=== PATIENT | female | born 1965 | race Caucasian/White ===

== ENCOUNTER → 2017-11-13 08:15 | Outpatient (REF) | payer OTHER, SELFPAY ==
[2017-11-13 13:36] LABS: Cholesterol 255 mg/dL (50-200); HDL Cholesterol 74 mg/dL (40-60); LDL CHOLESTEROL 164 mg/dL (<100); Triglyceride 68 mg/dL (30-150)
== END ==
LOC: NCHCN 08:15
PROVIDERS: PCP Nurse Practitioner Family; Visit Provider Nurse Practitioner Family
DX: Z00.00 Encounter for general adult medical examination without abnormal findings (principal); Z13.220 Encounter for screening for lipoid disorders
CPT/HCPCS: 80061; 83721

== ENCOUNTER 2018-04-08 11:39 | Day surgery (SDC) | payer OTHER, SELFPAY ==
--- NOTE | 2018-04-08 06:56 | COLE_ITS ---
Date of service: 04/08/18 Time of Service: 14:27 Colonoscopy Report Date of procedure: 04/08/18 Pre-op diagnosis general: Colon Cancer Screening Post-op diagnosis procedure note: other (cecal polyp/ suboptimal prep) Procedure: Colonoscopy with polypectomy by cold forceps Surgeon: Katie Goldsmith Anesthesia proc note operative: MAC (Edmond Gallo, NUMERICAL CONTROL MACHINE MACHINIST/ ASA 2) Estimated blood loss (mL): 2 Pathology: other (cecal polyp) Complications: None Disposition: same day Indications: Ms. López is a pleasant 53-year-old female who was seen in the office for a colon cancer screening. Risks, benefits, complications were reviewed with her and she wished to proceed. No guarantees were given or implied. Prep: Miralax/Dulcolax Procedure Start Time: 14:27 Procedure End Time: 15:00 Retraction Time: 18 minutes Findings: Suboptimal prep on the right side small cecal polyp Procedure Description: After informed consent was obtained the patient was taken to the procedure room and placed in a left decubitous position. Monitors were applied and a time out was done. The patients name, date of , procedure, allergies to medications and metal in their body was reviewed. The patient was then sedated. Once sedated and comfortable a rectal exam was done. External exam was normal. Internal exam revealed a normal sphincter tone and no palpable masses. The scope was then introduced and retro-flexed. No internal hemorrhoids were identified. The scope was then advanced to the cecum with some difficulty. The colon was tortuous. The patient had to be placed on her back in order for the scope to finally move into the cecum. The TI and appendiceal orifice were identified. The prep was sub-optimal. There was a lot of dark liquid stool in the right colon from about mid-transverse to cecum. More then 1 L of fluid was used to try and clean the stool. The scope was then slowly retracted over 18 minutes back into the rectum. Polyp was removed in the cecum with cold forceps. The scope was removed and the patient was woken up and taken back to Same day surgery in stable condition. The patient tolerated the procedure well and there were no immediate complications. Follow up: The patient should follow up in 1-2 years due to the sub-optimal prep. Small polyps could have been easily missed. unless they develop changes in bowel habits or other new gastrointestinal complaints.
--- NOTE | 2018-04-08 06:56 | W.PM.DSUDISC ---
Discharge Plan Disposition Patient Disposition: HOME Condition: Good Discharge Details Reason For Visit: SCREENING Attending Provider: Katie Goldsmith Primary Care Provider: Bianca Mora Home Meds and New Rx's Prescriptions: Continued multivitamin 1 EACH capsule 1 ea PO DAILY RF: 0 loratadine 10 MG tablet 10 mg PO PRN RF: 0 Discontinued bisacodyl [Dulcolax (bisacodyl)] 5 mg tablet,delayed release (DR/EC) 5 mg PO ONCE Qty: 4 RF: 0 polyethylene glycol 3350 17 gram/dose powder 255 g PO ONCE Qty: 255 RF: 0 Discharge Instructions Instructions: Colonoscopy (DC), Colorectal Polyps (DC) Additional Instructions: Findings: one polyp sub-optimal prep Follow up: 1-2 years Please call if you develop: fevers >101.5 Nausea or Vomiting Abdominal pain that is not transient DAY SURGERY UNIT POST COLONOSCOPY INSTRUCTIONS 1. Because there will be medication in your system for the next 24 hours, you may feel a little sleepy. Your coordination will be affected. Therefore: a. Do not drive or operate dangerous equipment for 24 hours. b. Do not drink alcohol beverages for 24 hours (not even beer). c. Plan to go home and rest for the day. 2. Generally there are no restrictions on your activity after a day or so has gone by, but you may feel a bit fatigued for a few days. 3 After you arrive home you may have a light meal and return to a normal diet as you can tolerate it without feeling sick to your stomach. 4. After surgery, you may feel pain or discomfort. This should be only transient, but if it persists please contact your doctor. 5. If there are any questions regarding the findings of your procedure, please feel free to contact your doctor. 6. If you are unable to contact your doctor with a problem, contact the hospital at [phone]. 7. Continue all your regular medications unless directed otherwise. I understand the above instructions and have no questions. Signature of Patient or Responsible Adult Escort Date/Time Name of Responsible Adult Escort Signature of Nurse Date/Time Activity:: Activity as Tolerated Diet:: As Tolerated Discharge Orders Discharge Orders: Discharge Order (Routine); Ordered 04/08/18 Ordered By: Katie Goldsmith DS: Diagnosis Discharge Diagnosis (1) Colorectal polyp detected on colonoscopy: Status: Acute (2) S/P colonoscopy: Status: Acute
[2018-04-08 11:49] VITALS: BP 156/83; PULSE 69; RESP 16; TEMP 35; O2SAT 99
[2018-04-08] MEDS: Lactated Ringers 1,000 ML 80 ML IV ×2 (12:21→15:31)
--- NOTE | 2018-04-08 14:43 | BOWEL_PTH ---
PATIENT: VAUGHN ROBERT LOC: [facility] U#:[id number] AGE/SX: 53/F ROOM: RE04/08/[address]: Katie Goldsmith MD : [id number] BED: DIS: 04/08/2018 SPEC #: [id number] RECD: 04/08/18 18:00 STATUS: MARCIA MCDONNELL #: [id number] HOLLEY: 04/08/18 14:[address]: Katie Goldsmith DEPT: Surgical Specimen RECD BY: Anitha Brannon ENTERED: 04/08/18 18:00 SP TYPE: Bowel OTHR DR: Bianca Mora Tissues: 1 - BIOPSY BOWEL Procedures: GROSS AND MICRO LEVEL 4 Comments: [id number]
[2018-04-08] MEDS: Hyoscyamine 0.125 MG SL/ORAL/CHEW SL (15:32)
[2018-04-08 15:42] VITALS: BP 172/85; PULSE 58; RESP 16; TEMP 37.1; O2SAT 100
[2018-04-08 16:10] VITALS: BP 133/84; PULSE 68; RESP 16; TEMP 37.4; O2SAT 99
== END 2018-04-08 16:32 | disposition home or self-care (01) ==
PROVIDERS: PCP Nurse Practitioner Family; Visit Provider Surgery
PROC: 0DJD8ZZ Inspection of Lower Intestinal Tract, Via Natural or Artificial Opening Endoscopic (ICD-10-PCS; CPT 45378; principal; 2018-04-08 13:30)
DX: Z12.11 Encounter for screening for malignant neoplasm of colon (principal); D12.0 Benign neoplasm of cecum
CPT/HCPCS: 45380; 88305; J3490

== ENCOUNTER 2018-10-11 22:59 | Emergency (ER) | payer OTHER, SELFPAY ==
[2018-10-11] VITALS (11 sets, daily range): BP systolic 140–180; BP diastolic 73–82; PULSE 63–74; RESP 14–20; TEMP 37.1; O2SAT 95–98
--- NOTE | 2018-10-11 01:23 | DI.CT_ITS ---
SYMPTOM/DIAGNOSIS: ACUTE ONSET NECK AND BACK, CHEST PAIN CTA OF NECK: CT angiography was performed with multi slice acquisition and multi planar and 3D reconstruction. Routine examination was performed. The common carotid arteries are unremarkable without evidence of dissection, occlusion or significant stenosis. The internal carotid arteries are unremarkable without evidence of dissection, occlusion or significant stenosis. The external carotid arteries are unremarkable without evidence of occlusion or significant stenosis. The vertebral arteries are unremarkable without evidence of occlusion, dissection or significant stenosis. There is mild mucosal thickening in the right maxillary sinus. The remaining visualized paranasal sinuses are clear. No fluid levels are seen. The mastoid air cells are well pneumatized. The bones are intact. The lung apices are clear. IMPRESSION: No carotid or vertebral artery stenosis, dissection or aneurysm. CTA CHEST: CT angiography was performed with multi slice acquisition and multi planar and 3D reconstruction. CT angiography of the chest was performed according to protocol. There is no evidence of a pulmonary embolus, thoracic aortic dissection or aneurysm. Heart size is within normal limits. No significant pericardial effusion is seen. No evidence of right ventricular dysfunction is present. No significant thoracic adenopathy is seen. No pleural effusion or pneumothorax is identified. There is mild atelectasis but no focal consolidating infiltrate is present. The tracheobronchial tree is unremarkable. There are a few hypodense lesions seen in the liver. They are too small for further characterization but may reflect small cysts. The bones are intact. IMPRESSION: No acute pulmonary process. No evidence of a pulmonary embolus, thoracic aortic dissection or aneurysm.
--- NOTE | 2018-10-11 23:05 | W.ED.GENAD ---
Discharge Plan Disposition Patient Disposition: HOME Condition: Good Discharge Details Chief Complaint: Chest Pain Clinical Impression: Chest pain Primary Care Provider: Bianca Mora ED Provider: Jaret Stratton Home Meds and New Rx's Prescriptions: Continued multivitamin 1 EACH capsule 1 ea PO DAILY RF: 0 loratadine 10 MG tablet 10 mg PO PRN RF: 0 Discharge Instructions Instructions: Chest Pain (ED) Additional Instructions: Your EKGs, laboratory studies, imaging studies are all within normal limits. There is no evidence of blood clot or dissection. Unlikely to be cardiac in nature but should follow-up with primary care next week. Return to ED if new or worsening pain, shortness of breath, fever, other concerns or problems per Referrals: Bianca Mora [Primary Care Provider] - Medical Decision Making At this point patient's pain is almost resolved. She has no cardiac risk factors and presentation is atypical as pain went from jaw down to chest as opposed to other way. I'd be a little suspicious for dissection but I would not expect the pain to get better. I do not have suspicion for PE as there is no pleuritic component, tachycardia, shortness of breath. EKG is normal. We will hold off on aspirin for now. We will get CTA of the chest and neck and do cardiac work-up with a 3-hour delta troponin. 00:30 - Labs are unremarkable. HEART score is one. Patient going to CT now. 02:15 - CTA neck and chest are negative for acute pathology. No PE, dissections. Repeat EKG remains normal. Repeat troponin being drawn now. 02:50 - Patient's 2nd troponin is negative. Patient is pain free. Will discharge home to follow up with PCP next week. Return to ED for new/worse pain, shortness of breath, fever, other concerns. ECG Data Attestation: I personally reviewed and interpreted this ECG (s) as follows: Prior ECG tracings: not available for review Interpretation: #1 - Normal sinus rhythm at 68. Normal axis and intervals. Normal EKG. #2 - Normal sinus rhythm at 63. Normal axis and intervals. Normal EKG. HPI General Mode of arrival: ambulatory. Date/Time Provider Initiated Documentation: 10/11/18 23:05. Limitations to Documentation: no limitations. Information obtained by: patient and RN notes reviewed. HPI Narrative: Patient presents to ED with complaint of chest and neck pain. Patient states she woke up out of a sound sleep with bilateral jaw pain radiating down into her neck. It then radiated down into her chest and back. She described it as severe achiness. She did not have shortness of breath. There was no pleuritic component to it. In fact breathing and walking around made it better. There was some slight nausea and lightheadedness. There was no headache, mental status change, speech change, numbness, weakness. Symptoms have almost resolved at this point. However, she has never had anything like this previously, the pain was initially quite severe, she was concerned and wants to be evaluated. She has no risk factors for cardiac disease, pulmonary embolus, dissection. Related Data Home Medications Medication Instructions Recorded Confirmed loratadine 10 mg PO PRN NS 10/15/17 10/11/18 multivitamin 1 ea PO DAILY NS 10/15/17 10/11/18 Allergies Allergy/AdvReac Type Severity Reaction Status Date / Time shellfish derived Allergy Severe Verified 10/11/18 23:17 Review of Systems Review of Systems 01/13 Review of Systems completed and is negative except as stated above in HPI (Systems reviewed: Const, Eyes, ENT, Resp, CV, GI, , MSK, Skin, Neuro) [facility] Medical History Alopecia areata Atopic rhinitis Colorectal polyp detected on colonoscopy (Acute ~04/08/18) Dermatitis due to sun Herpes labialis Lentigo Vitamin D deficiency Surgical History S/P colonoscopy (Acute ~04/08/18) Social History Smoking/Tobacco Use Status: Former Tobacco Use Alcohol Intake: current Alcohol Intake frequency: a few times a week Alcohol type: wine and hard liquor Drug use: Occasionally Substance use type: marijuana Do you feel safe at home: Yes Do you feel safe in your relationship?: Yes Exam Narrative Exam Narrative: Vitals: Afebrile. Elevated BP otherwise normal vitals. Const: WDWN female in NAD. HEENT: NC/AT. Normal facial exam. Eyes: Normal conjunctiva and sclera. Neck: Supple. Trachea midline. Lungs: Normal respiratory effort. Lungs are clear. Cor: RRR without murmur/gallop. Good radial pulses bilaterally. GI: Soft. NT/ND. No guarding or rebound. Neuro: A+O x 3. CN grossly in tact. Good strength and no focal deficit. Ext: No C/C/E. No deformity or tenderness. No calf tenderness. Skin: Warm and dry.
[2018-10-11] MEDS: Normal Saline 1,000 ML 125 ML IV (23:29)
[2018-10-12] VITALS (20 sets, daily range): BP systolic 133–161; BP diastolic 69–81; PULSE 62–83; RESP 13–20; TEMP 36.7; O2SAT 95–98
[2018-10-12 00:03] LABS: Abs Immature Grans 0.01 k/cumm (0.0-0.09); Absolute Basophil Count 0.05 k/cumm (0.0-0.2); Absolute Eosinophil Count 0.25 k/cumm (0.0-0.7); Absolute Lymphocyte Count 1.96 k/cumm (1.2-3.4); Absolute Monocyte Count 0.46 k/cumm (0.11-0.7); Absolute Neutrophil Count 3.48 k/cumm (1.2-6.7); Basophils % 0.8; HCT 40.4 % (36.0-46.0); HGB 13.7 g/dL (12.0-15.5); Immature Grans % 0.2; Lymphocytes % 31.6; Mean Corp. HGB Concentration 33.9 g/dL (32.0-36.0); Mean Corpuscular Hemoglobin 31.2 pg (27.0-33.0); Mean Platelet Volume 9.9 fL (8.0-11.0); Monocytes % 7.4; Platelet Count 333 x1000/uL (130-400); RBC 4.39 m/cumm (4.00-5.20); RBC Distribution Width 14.1 % (11.7-14.6); White Blood Cell Count 6.21 k/cumm (4.4-10.8)
[2018-10-12 00:20] LABS: ALT 32 U/L (12-78); AST 15 U/L (15-37); Albumin 3.8 g/dL (3.4-5.0); Alkaline Phosphatase 89 U/L (46-116); Anion Gap 12.6 mmol/L (3-11); BUN 23 mg/dL (7-18); Bilirubin, Total 0.2 mg/dL (0.2-1.0); CO2 25.4 mmol/L (21.0-32.0); CREATININE 0.68 mg/dL (0.55-1.02); Calcium 8.8 mg/dL (8.5-10.1); Chloride 104 mmol/L (98-107); Glucose 131 mg/dL (70-100); Magnesium 1.9 mg/dL (1.8-2.4); Potassium 3.4 mmol/L (3.5-5.1); Sodium 142 mmol/L (136-145); Total Protein 7.4 g/dL (6.4-8.2)
[2018-10-12 00:33] LABS: Troponin I < 0.05 ng/mL (0.00-0.06)
[2018-10-12] MEDS: Omnipaque 350 MG/ML 100 ML BTL IJ (01:25)
[2018-10-12] MEDS: Omnipaque 350 MG/ML 50 ML BTL IJ (01:26)
--- NOTE | 2018-10-12 01:45 | DI.VRAD_ITS ---
EXAM: CT Angiography Chest With Contrast EXAM DATE/TIME: 10/11/2018 11:30 PM CLINICAL HISTORY: 53 years old, female; Chest pain; Type not specified; Patient HX: Acute onset neck/chest/back pain TECHNIQUE: Imaging protocol: Axial computed tomographic angiography images of the chest with intravenous contrast using CT angiography protocol. Coronal and sagittal reformatted images were created and reviewed. 3D rendering: MIP reconstructed images were created and reviewed. Radiation optimization: All CT scans at this facility use at least one of these dose optimization techniques: automated exposure control; mA and/or kV adjustment per patient size (includes targeted exams where dose is matched to clinical indication); or iterative reconstruction. Contrast material: [id number]; Contrast volume: 75 ml; Contrast route: IV 18G RAC; COMPARISON: No relevant prior studies available. FINDINGS: Pulmonary arteries: No pulmonary embolism identified. Aorta: No thoracic aortic aneurysm or dissection. Thyroid: Thyroid gland partially excluded from view but grossly unremarkable through its visualized portion. Lungs: Minimal linear and reticular opacity, probably atelectasis. No region of pulmonary consolidation. Pleural space: No pleural effusion or pneumothorax. Heart: Normal sized heart. Liver: Small indeterminate hypoattenuating hepatic lesion, incompletely characterized but most likely a small cyst or hemangioma. Lymph nodes: Scattered shotty mediastinal and hilar lymph nodes, nonspecific. Bones/joints: No acute fracture seen among the bones of the chest. Mild degenerative changes noted in the thoracic spine. Soft tissues: Unremarkable. IMPRESSION: No active disease is seen in the chest. Dictated and Authenticated by: Mert Mcgowan MD. Ordering:VALERIE Raygoza MD
--- NOTE | 2018-10-12 02:02 | DI.VRAD_ITS ---
EXAM: CT Angiography Neck With Contrast EXAM DATE/TIME: 10/11/2018 11:30 PM CLINICAL HISTORY: 53 years old, female; Other: Acute onset neck/chest/back pain TECHNIQUE: Imaging protocol: Axial computed tomographic angiography images of the neck with intravenous contrast using CT angiography protocol. Coronal and sagittal reformatted images were created and reviewed. 3D rendering: MIP reconstructed images were created and reviewed. Radiation optimization: All CT scans at this facility use at least one of these dose optimization techniques: automated exposure control; mA and/or kV adjustment per patient size (includes targeted exams where dose is matched to clinical indication); or iterative reconstruction. Contrast material: [id number]; Contrast volume: 75 ml; Contrast route: IV 18G RAC; COMPARISON: No relevant prior studies available. FINDINGS: VASCULATURE: Right common carotid artery: Unremarkable. No stenosis. No dissection or occlusion. Right internal carotid artery: Unremarkable extracranial segment. No stenosis. No dissection or occlusion. Right external carotid artery: Unremarkable. No occlusion or stenosis of the origin. Right vertebral artery: Unremarkable. No stenosis. No dissection or occlusion. Left common carotid artery: Unremarkable. No stenosis. No dissection or occlusion. Left internal carotid artery: Unremarkable extracranial segment. No stenosis. No dissection or occlusion. Left external carotid artery: Unremarkable. No occlusion or stenosis of the origin. Left vertebral artery: Unremarkable. No stenosis. No dissection or occlusion. NECK: Sinuses: Mucoperiosteal in right maxillary sinus.The remainder of the visualized paranasal sinuses are clear. Bones/joints: No acute fracture. Soft tissues: Normal. No significant soft tissue swelling. Lungs: Visualized lungs are clear. IMPRESSION: No carotid or vertebral artery stenoses, dissections or aneurysms demonstrated. COMMENT: Reference per NASCET criteria for degree of stenosis: Mild: less than 50% stenosis. Moderate: 50-69% stenosis. Severe: 70-94% stenosis. Near occlusion: 95-99% stenosis. Dictated and Authenticated by: Alejandro Marrero MD. Ordering:VALERIE Raygoza MD
[2018-10-12 02:46] LABS: Troponin I < 0.05 ng/mL (0.00-0.06)
== END 2018-10-12 02:57 | disposition home or self-care (01) ==
PROVIDERS: Emergency Provider Emergency Medicine; PCP Nurse Practitioner Family
DX: R07.9 Chest pain, unspecified (principal); M54.2 Cervicalgia
CPT/HCPCS: 36415; 70498; 71275; 80053; 93005; 96360; 96361; 99285; 83735; 84484; 85025; 93010; 99283; J3490; Q9967